=== PATIENT | male | born 1950 | race Caucasian/White ===

== ENCOUNTER 2021-10-31 09:01 | Outpatient (CLI) | payer OTHER, SELFPAY ==
--- NOTE | 2021-10-31 09:12 | USCV_ITS ---
Reji Dickens Age: 71 Gender: M : 1950 Exam Date: 10/31/2021 09:29 Ordering Phys: Sary Castaneda MD Technologist: CANDELARIA Exam Location: [facility] [place] Indication: AAA SCREEN. HISTORY: HTN, SMOKER, HYPERLIPIDEMIA Diameter (cm) AP x Transverse x Length Velocity (cm/s) Waveform Prox Aorta: 1.94 x 1.97 x 98.80 Triphasic Mid Aorta: 2.00 x 1.87 x 82.70 Triphasic Distal Aorta: 1.52 x 1.49 x 80.60 Triphasic Right Iliac Prox: 0.72 x 0.75 x 117.10 Triphasic Left Iliac Prox: 0.69 x 0.85 x 108.50 Triphasic Stent Prox Landing x x Aneurysmal Sac Max x x Lt Lat Sac Dim Rt Lat Sac Dim Stent Dist Landing x x Right Iliac Stent x x Left Iliac Stent x x Right Renal Art Left Renal Art FINDINGS: Comparison: none available. No evidence of abdominal aortic or bilateral iliac aneurysm. Ectatic abdominal aorta with evidence of atherosclerotic plaque noted. CONCLUSIONS No evidence of abdominal aortic or bilateral iliac aneurysm. Dr. Merlyn Rollins DO (Electronically Signed) Final Date: 31 October 2021 10:28 S
--- NOTE | 2021-10-31 09:16 | US_ITS ---
WS: [id number] RIGHT UPPER QUADRANT ULTRASOUND HISTORY: ELEVATED LIVER ENZYMES COMPARISON: None available. Liver: 15.9 cm in length. Liver is top normal size. Very coarse echotexture throughout the liver. Lion face of the liver is nodular. No mass or bile duct dilatation. Portal Vein: Normal hepatopetal flow with monophasic waveform. Gallbladder: Normally distended gallbladder with no stones or wall thickening. CBD: 0.4 cm Pancreas: Normal size and echogenicity. Right kidney: 10.1 cm in length. Normal size and echogenicity. No hydronephrosis or mass. Aorta and IVC: Unremarkable abdominal aorta and IVC. No ascites. US/US abdomen limited [id number] IMPRESSION: 1. Cirrhotic liver with no mass. 2. Negative gallbladder.
== END 2021-10-31 09:02 | disposition home or self-care (01) ==
LOC: RAD 09:01
PROVIDERS: PCP Family Medicine; Visit Provider Family Medicine
DX: Z13.6 Encounter for screening for cardiovascular disorders (principal); R74.8 Abnormal levels of other serum enzymes; K74.69 Other cirrhosis of liver
CPT/HCPCS: 76705; 76706